=== PATIENT | female | born 1980 | race African-American/Black ===

== ENCOUNTER 2017-07-18 06:59 | Emergency (ER) | payer OTHER ==
[~2017-07-18] VITALS: Ht 172.7 cm; Wt 105.0 kg
[~2017-07-18 06:59] MED LIST: BACL10TA PO; DICL75 PO; Z.0.NO CURRENT MEDS
[2017-07-18 07:02] VITALS: BP 138/87; PULSE 86; RESP 16; TEMP 98.4; O2SAT 98
[2017-07-18] MEDS ORDERED: IBUP1TAB7 PO (07:39)
[2017-07-18] MEDS ORDERED: ROBA500T PO (07:39)
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
[2017-07-18] MEDS ORDERED: IBUPROFEN 800 MG TAB PO ONE (07:45)
[2017-07-18] MEDS ORDERED: METHOCARBAMOL 500 MG TAB PO ONE (07:45)
== END 2017-07-18 07:51 | disposition home or self-care (01) ==
LOC: NEPD 06:59
DX: S46.911A Strain of unspecified muscle, fascia and tendon at shoulder and upper arm level, right arm, initial encounter (principal); S16.1XXA Strain of muscle, fascia and tendon at neck level, initial encounter; S39.012A Strain of muscle, fascia and tendon of lower back, initial encounter; F17.210 Nicotine dependence, cigarettes, uncomplicated; V49.50XA Passenger injured in collision with unspecified motor vehicles in traffic accident, initial encounter
CPT/HCPCS: 99283